=== PATIENT | female | born 1945 | race Caucasian/White ===

== ENCOUNTER 2023-07-12 17:23 | Emergency (ER) | payer MEDICARE ==
[~2023-07-12] VITALS: Ht 157.5 cm; Wt 59.0 kg
[2023-07-12 17:29] VITALS: BP_SYST 130; PULSE 91; RESP 18; TEMP 97.6; O2SAT 99
[2023-07-12] MEDS: MORPHINE 2 MG/ML INJ. SYRINGE IVP ONE (18:23)
[2023-07-12] MEDS: MORPHINE 2 MG/ML INJ. SYRINGE IM ONE (18:25)
[2023-07-12] MEDS ORDERED: HYDR-3917 PO (18:50)
== END 2023-07-12 18:01 | disposition home or self-care (01) ==
LOC: SED 17:23
DX: S42.352A Displaced comminuted fracture of shaft of humerus, left arm, initial encounter for closed fracture (principal); Z79.899 Other long term (current) drug therapy; W18.40XA Slipping, tripping and stumbling without falling, unspecified, initial encounter; Y93.89 Activity, other specified; Y92.89 Other specified places as the place of occurrence of the external cause; Y99.8 Other external cause status
CPT/HCPCS: 99284; 73030; 73060; 96372; J2270